=== PATIENT | male | born 1970 | race Caucasian/White ===

== ENCOUNTER 2017-11-25 05:57 | Inpatient (IN) | payer MEDICARE, OTHER ==
[~2017-11-25] VITALS: Ht 175.3 cm; Wt 87.1 kg
[~2017-11-25 05:57] MED LIST: ALLO100T PO; ASPI-845 PO; ATOR80TA PO; BUTA1CAP PO; CARV-49 PO; CLOP75TA15 PO; HYDR-565 PO; INDSR75C PO; ISOS30TA6 PO; LOSA25TA21 PO; METO5TAB85 PO; MULT-66 PO; NITR0.4T51 SL
[2017-11-25] MEDS ORDERED: pantoprazole 40 MG vial IV ONE (06:45)
[2017-11-25] MEDS ORDERED: morphine 4 MG/ML inj SYRINge IV ONE (06:45)
[2017-11-25] MEDS ORDERED: nitroGLYCERIN 0.4mg/hour patch TD ONE (06:45)
[2017-11-25] MEDS ORDERED: normal saline 1000ML IV soln IVB ONE (06:45)
[2017-11-25 06:48] LABS: INR 1.1 INR
[2017-11-25 06:51] LABS: ALANINE AMINOTRANSFERASE 30 U/L (12-78); ALBUMIN 3.7 G/DL (3.4-5.0); ALBUMIN/GLOBULIN RATIO 1.2 (1.1-1.5); ALKALINE PHOSPHATASE 67 IU/L (46-116); ANION GAP 9 (8-16); ASPARTATE AMINO TRANSFERASE 14 U/L (10-37); BILIRUBIN,TOTAL 0.2 MG/DL (0.1-1.0); BLOOD UREA NITROGEN 10 MG/DL (7-18); BUN/CREATININE RATIO 8.9 (5.4-32.0); CALCIUM 8.5 MG/DL (8.5-10.1); CHLORIDE 106 MMOL/L (99-107); CREATININE 1.12 MG/DL (0.60-1.10); GLUCOSE 113 MG/DL (70-104); LIPASE 91 U/L (73-393); SODIUM 139 MMOL/L (135-145); TOTAL CARBON DIOXIDE 23.6 MMOL/L (24-32); TOTAL PROTEIN 6.8 G/DL (6.4-8.2); eGFR 70 ML/MIN
[2017-11-25 07:04] LABS: BASOPHILS # (AUTO) 0.1 X10'3 (0-0.2); BASOPHILS % (AUTO) 0.7 % (0-1); EOSINOPHILS # (AUTO) 0.2 X10'3 (0-0.9); EOSINOPHILS % (AUTO) 2.1 % (0-6); HEMATOCRIT 46.5 % (42.0-52.0); HEMOGLOBIN 15.8 g/dl (14.0-17.9); LYMPHOCYTES # (AUTO) 1.8 X10'3 (1.1-4.8); LYMPHOCYTES % (AUTO) 22.3 % (21-51); MEAN CORPUSCULAR HEMOGLOBIN 29.5 PG (27.0-31.0); MEAN CORPUSCULAR VOLUME 86.9 FL (78-98); MEAN PLATELET VOLUME 7.6 FL (7.4-10.4); MONOCYTES # (AUTO) 0.5 X10'3 (0-0.9); MONOCYTES % (AUTO) 5.9 % (2-12); NEUTROPHILS # (AUTO) 5.6 X10'3 (1.8-7.7); PLATELET COUNT 281 X10'3 (140-440); RED BLOOD COUNT 5.35 X10'6 (4.70-6.10); RED CELL DISTRIBUTION WIDTH 14.1 % (11.5-14.5); WHITE BLOOD COUNT 8.1 X10'3 (4.5-11.0)
[2017-11-25] MEDS ORDERED: ondansetron/PF 4mg/2ml inj IV ONE (07:05)
[2017-11-25] MEDS ORDERED: acetaminophen 325mg tablet PO ONE (07:05)
[2017-11-25] MEDS ORDERED: DIPH25CA83 PO (07:44)
[2017-11-25] MEDS ORDERED: CLOP75TA35 PO (07:45)
[2017-11-25] MEDS ORDERED: acetaminophen 325mg tablet PO PRN (08:40)
[2017-11-25] MEDS ORDERED: magnesium 4gm in 100ml NS 100 ML IV PRN (08:40)
[2017-11-25] MEDS ORDERED: morphine 4 MG/ML inj SYRINge IV PRN (08:40)
[2017-11-25] MEDS ORDERED: potassium Cl 40MEQ/NS 500ml 500 ML IV PRN ×2 (08:40)
[2017-11-25] MEDS ORDERED: magnesium 1gm/100ml D5W IVPB 50 ML IV PRN (08:40)
[2017-11-25] MEDS ORDERED: magnesium Cl slow-release 64mg tablet PO PRN (08:40)
[2017-11-25] MEDS ORDERED: mag hydrox/Alum hydrox/simeth 30ml oral suspension PO PRN (08:40)
[2017-11-25] MEDS ORDERED: potassium Cl 20 mEq SR tablet PO PRN ×2 (08:40)
[2017-11-25] MEDS: normal saline 1000ml 1,000 ML IV SCH ×3 (09:07→20:40)
[2017-11-25] MEDS: morphine 4 MG/ML inj SYRINge IV PRN ×2 (09:07→14:14)
[2017-11-25 09:10] LABS: CLARITY,URINE CLEAR (Clear); COLOR,URINE YELLOW (Yellow); GLUCOSE, URINE NEGATIVE (Neg); KETONES,URINE NEGATIVE (Neg); LEUKOCYTE ESTERASE ,URINE NEGATIVE (Neg); NITRITES, URINE NEGATIVE (Neg); OCCULT BLOOD,URINE NEGATIVE (Neg); PH,URINE 6.5 (4.8-8.0); PROTEIN,URINE NEGATIVE (Neg); UROBILINOGEN,URINE 0.2 E.U/dL (0.2-1.0)
[2017-11-25 09:14] LABS: UA COLLECTION TYPE VOIDED
[2017-11-25] MEDS ORDERED: iohexol 300mg/ml 100ml inj. ONE (09:48)
[2017-11-25 10:44] VITALS: BP 131/81
[2017-11-25] MEDS: ondansetron/PF 4mg/2ml inj IV PRN ×2 (14:13→14:14)
[2017-11-25 15:00] VITALS: BP 137/78
[2017-11-25] MEDS ORDERED: HYDROcodone/acetaminophen 10/325mg tab PO PRN (15:55)
[2017-11-25] MEDS ORDERED: nitroGLYCERIN 0.4mg SUBLingual tab SL PRN (15:55)
[2017-11-25] MEDS: pantoprazole 40 MG vial IV SCH (16:41)
[2017-11-25] MEDS: metroNIDAZOLE-Flagyl 500mg/NS 100 ML IV SCH ×2 (16:41→23:22)
[2017-11-25] MEDS: levoFLOXACIN-Levaquin 500mg/D5 100 ML IV SCH (17:50)
[2017-11-25 19:00] VITALS: BP 117/80
[2017-11-25] MEDS: lactobacillus rhamnosus 10,000 MMU CELLS/CAPSULE PO SCH (19:26)
[2017-11-25] MEDS: isosorbide mononitrate 30mg tab.SR.24H PO SCH (20:40)
[2017-11-25] MEDS: losartan 25mg tablet PO SCH (20:40)
[2017-11-25 23:00] VITALS: BP 102/60
[2017-11-26 03:00] VITALS: BP 102/60
[2017-11-26 05:23] LABS: ALBUMIN 3.3 G/DL (3.4-5.0); ANION GAP 8 (8-16); BLOOD UREA NITROGEN 8 MG/DL (7-18); BUN/CREATININE RATIO 7.5 (5.4-32.0); CALCIUM 8.2 MG/DL (8.5-10.1); CHLORIDE 105 MMOL/L (99-107); CREATININE 1.06 MG/DL (0.60-1.10); GLUCOSE 101 MG/DL (70-104); MAGNESIUM 1.6 MG/DL (1.5-2.4); POTASSIUM 3.9 MMOL/L (3.5-5.1); SODIUM 138 MMOL/L (135-145); TOTAL CARBON DIOXIDE 25.3 MMOL/L (24-32); eGFR 75 ML/MIN
[2017-11-26 05:24] LABS: BASOPHILS % (AUTO) 0.4 % (0-1); EOSINOPHILS # (AUTO) 0.2 X10'3 (0-0.9); EOSINOPHILS % (AUTO) 2.2 % (0-6); HEMATOCRIT 45.6 % (42.0-52.0); HEMOGLOBIN 15.5 g/dl (14.0-17.9); LYMPHOCYTES # (AUTO) 1.8 X10'3 (1.1-4.8); LYMPHOCYTES % (AUTO) 22.9 % (21-51); MEAN CORPUSCULAR HEMOGLOBIN 29.7 PG (27.0-31.0); MEAN CORPUSCULAR HGB CONC 34.1 % (33.0-36.5); MEAN CORPUSCULAR VOLUME 87.3 FL (78-98); MEAN PLATELET VOLUME 7.6 FL (7.4-10.4); MONOCYTES # (AUTO) 0.5 X10'3 (0-0.9); MONOCYTES % (AUTO) 6.3 % (2-12); NEUTROPHILS # (AUTO) 5.5 X10'3 (1.8-7.7); NEUTROPHILS % (AUTO) 68.2 % (42-75); PLATELET COUNT 245 X10'3 (140-440); RED BLOOD COUNT 5.23 X10'6 (4.70-6.10)
[2017-11-26 06:00] VITALS: BP 135/84
[2017-11-26] MEDS: metroNIDAZOLE-Flagyl 500mg/NS 100 ML IV SCH ×2 (07:26→16:18)
[2017-11-26] MEDS: pantoprazole 40 MG vial IV SCH (07:28)
[2017-11-26] MEDS: carvedilol 6.25mg tablet PO SCH (07:32)
[2017-11-26] MEDS: lactobacillus rhamnosus 10,000 MMU CELLS/CAPSULE PO SCH ×2 (07:34→20:14)
[2017-11-26] MEDS: atorvastatin 20mg tablet PO SCH (07:35)
[2017-11-26] MEDS: normal saline 1000ml 1,000 ML IV SCH ×2 (07:40→20:14)
[2017-11-26] MEDS ORDERED: aspirin 325mg tablet, delayed-release (Ecotrin) PO SCH (08:00)
[2017-11-26] MEDS: K and/or MAG REPLACEMENT MC SCH (08:00)
[2017-11-26] MEDS: levoFLOXACIN-Levaquin 500mg/D5 100 ML IV SCH (09:01)
[2017-11-26] MEDS: ondansetron/PF 4mg/2ml inj IV PRN (10:41)
[2017-11-26 13:21] VITALS: BP 137/84
[2017-11-26] MEDS ORDERED: MORPHINE 2MG in 2ml NS syringe IV ONE (14:20)
[2017-11-26] MEDS ORDERED: morphine 4 MG/ML inj SYRINge IV ONE (14:25)
[2017-11-26 15:00] VITALS: BP 133/74
[2017-11-26 19:00] VITALS: BP 134/84
[2017-11-26] MEDS: losartan 25mg tablet PO SCH (20:14)
[2017-11-26] MEDS: isosorbide mononitrate 30mg tab.SR.24H PO SCH (20:14)
[2017-11-26 23:00] VITALS: BP 116/67
[2017-11-27] MEDS: metroNIDAZOLE-Flagyl 500mg/NS 100 ML IV SCH ×3 (01:04→16:37)
[2017-11-27 03:00] VITALS: BP 121/65
[2017-11-27 05:04] LABS: BASOPHILS % (AUTO) 0.4 % (0-1); EOSINOPHILS # (AUTO) 0.1 X10'3 (0-0.9); EOSINOPHILS % (AUTO) 1.4 % (0-6); HEMATOCRIT 44.8 % (42.0-52.0); HEMOGLOBIN 15.2 g/dl (14.0-17.9); LYMPHOCYTES # (AUTO) 1.9 X10'3 (1.1-4.8); LYMPHOCYTES % (AUTO) 22.2 % (21-51); MEAN CORPUSCULAR HEMOGLOBIN 29.5 PG (27.0-31.0); MEAN CORPUSCULAR HGB CONC 33.8 % (33.0-36.5); MEAN CORPUSCULAR VOLUME 87.3 FL (78-98); MEAN PLATELET VOLUME 7.7 FL (7.4-10.4); MONOCYTES # (AUTO) 0.5 X10'3 (0-0.9); MONOCYTES % (AUTO) 6.4 % (2-12); NEUTROPHILS # (AUTO) 5.9 X10'3 (1.8-7.7); NEUTROPHILS % (AUTO) 69.6 % (42-75); PLATELET COUNT 245 X10'3 (140-440); RED BLOOD COUNT 5.14 X10'6 (4.70-6.10); RED CELL DISTRIBUTION WIDTH 13.9 % (11.5-14.5); WHITE BLOOD COUNT 8.4 X10'3 (4.5-11.0)
[2017-11-27 05:40] LABS: ALBUMIN 3.2 G/DL (3.4-5.0); ANION GAP 10 (8-16); BLOOD UREA NITROGEN 9 MG/DL (7-18); CALCIUM 8.2 MG/DL (8.5-10.1); CHLORIDE 105 MMOL/L (99-107); GLUCOSE 95 MG/DL (70-104); MAGNESIUM 1.7 MG/DL (1.5-2.4); SODIUM 140 MMOL/L (135-145); TOTAL CARBON DIOXIDE 25.4 MMOL/L (24-32); eGFR 80 ML/MIN
[2017-11-27 06:00] VITALS: BP 112/74
[2017-11-27] MEDS: normal saline 1000ml 1,000 ML IV SCH ×2 (06:50→16:37)
[2017-11-27] MEDS: levoFLOXACIN-Levaquin 500mg/D5 100 ML IV SCH (06:54)
[2017-11-27] MEDS: lactobacillus rhamnosus 10,000 MMU CELLS/CAPSULE PO SCH ×2 (06:55→19:44)
[2017-11-27] MEDS: atorvastatin 20mg tablet PO SCH (06:55)
[2017-11-27] MEDS: pantoprazole 40 MG vial IV SCH (06:55)
[2017-11-27] MEDS: carvedilol 6.25mg tablet PO SCH (06:56)
[2017-11-27] MEDS: K and/or MAG REPLACEMENT MC SCH (08:00)
[2017-11-27] MEDS: ondansetron/PF 4mg/2ml inj IV PRN ×2 (09:10→15:13)
[2017-11-27] MEDS: morphine 4 MG/ML inj SYRINge IV PRN ×2 (09:10→15:13)
[2017-11-27 10:54] LABS: OCCULT BLOOD STOOL NEGATIVE (Neg)
[2017-11-27 11:00] VITALS: BP 137/81
[2017-11-27 18:00] VITALS: BP 110/70
[2017-11-27] MEDS: isosorbide mononitrate 30mg tab.SR.24H PO SCH (20:03)
[2017-11-27] MEDS: losartan 25mg tablet PO SCH (20:03)
[2017-11-27 22:00] VITALS: BP 97/60
[2017-11-28] MEDS: metroNIDAZOLE-Flagyl 500mg/NS 100 ML IV SCH ×2 (01:54→07:41)
[2017-11-28 02:00] VITALS: BP 108/65
[2017-11-28 05:38] LABS: BASOPHILS % (AUTO) 0.3 % (0-1); EOSINOPHILS # (AUTO) 0.1 X10'3 (0-0.9); EOSINOPHILS % (AUTO) 1.4 % (0-6); HEMATOCRIT 45.7 % (42.0-52.0); HEMOGLOBIN 15.7 g/dl (14.0-17.9); LYMPHOCYTES # (AUTO) 1.7 X10'3 (1.1-4.8); LYMPHOCYTES % (AUTO) 21.3 % (21-51); MEAN CORPUSCULAR HEMOGLOBIN 29.9 PG (27.0-31.0); MEAN CORPUSCULAR HGB CONC 34.3 % (33.0-36.5); MEAN CORPUSCULAR VOLUME 87.1 FL (78-98); MEAN PLATELET VOLUME 7.4 FL (7.4-10.4); MONOCYTES # (AUTO) 0.6 X10'3 (0-0.9); MONOCYTES % (AUTO) 7.3 % (2-12); NEUTROPHILS # (AUTO) 5.7 X10'3 (1.8-7.7); NEUTROPHILS % (AUTO) 69.7 % (42-75); PLATELET COUNT 212 X10'3 (140-440); RED BLOOD COUNT 5.24 X10'6 (4.70-6.10); RED CELL DISTRIBUTION WIDTH 13.8 % (11.5-14.5); WHITE BLOOD COUNT 8.2 X10'3 (4.5-11.0)
[2017-11-28 05:59] LABS: ALBUMIN 3.3 G/DL (3.4-5.0); ANION GAP 9 (8-16); BLOOD UREA NITROGEN 10 MG/DL (7-18); BUN/CREATININE RATIO 9.3 (5.4-32.0); CALCIUM 8.2 MG/DL (8.5-10.1); CHLORIDE 106 MMOL/L (99-107); CREATININE 1.07 MG/DL (0.60-1.10); GLUCOSE 105 MG/DL (70-104); MAGNESIUM 1.9 MG/DL (1.5-2.4); SODIUM 139 MMOL/L (135-145); TOTAL CARBON DIOXIDE 23.7 MMOL/L (24-32); eGFR 74 ML/MIN
[2017-11-28 06:00] VITALS: BP 115/68
[2017-11-28] MEDS: pantoprazole 40 MG vial IV SCH (07:38)
[2017-11-28] MEDS: lactobacillus rhamnosus 10,000 MMU CELLS/CAPSULE PO SCH (07:40)
[2017-11-28] MEDS: atorvastatin 20mg tablet PO SCH (07:40)
[2017-11-28] MEDS: carvedilol 6.25mg tablet PO SCH (07:41)
[2017-11-28] MEDS: levoFLOXACIN-Levaquin 500mg/D5 100 ML IV SCH (07:41)
[2017-11-28] MEDS ORDERED: clopidogrel 75mg tablet PO SCH (08:00)
[2017-11-28] MEDS ORDERED: aspirin 81mg tab.chew PO SCH (08:30)
[2017-11-28] MEDS: normal saline 1000ml 1,000 ML IV SCH (08:35)
[2017-11-28] MEDS ORDERED: METR500T4 PO (09:52)
[2017-11-28] MEDS ORDERED: LEVO500T2 PO (09:52)
[2017-11-28] MEDS ORDERED: ASPI81TA52 PO (09:52)
[2017-11-28] MEDS ORDERED: FAMO-128 PO (09:58)
[2017-11-28 11:00] VITALS: BP 116/92
[2017-11-28] MEDS ORDERED: metroNIDAZOLE 500mg tablet PO SCH (17:30)
[2017-11-29] MEDS ORDERED: pantoprazole 40mg Tablet.DR PO SCH (07:30)
[2017-11-29] MEDS ORDERED: levoFLOXACIN 500mg tablet PO SCH (11:00)
[2017-12-02 11:58] LABS: OCCULT BLOOD STOOL POSITIVE (Neg)
== END 2017-11-28 12:15 | disposition home or self-care (01) | DRG 394 ==
LOC: ER 05:57 → ED HOLD 08:37 → PCU 3S 10:25
PROVIDERS: ADMIT Internal Medicine; ATTEND Internal Medicine
DX: K64.9 Unspecified hemorrhoids (principal); I25.110 Atherosclerotic heart disease of native coronary artery with unstable angina pectoris; K52.9 Noninfective gastroenteritis and colitis, unspecified; E78.5 Hyperlipidemia, unspecified; F12.10 Cannabis abuse, uncomplicated; E78.00 Pure hypercholesterolemia, unspecified; G47.30 Sleep apnea, unspecified; M10.9 Gout, unspecified; G43.909 Migraine, unspecified, not intractable, without status migrainosus; G89.29 Other chronic pain; I10 Essential (primary) hypertension; K21.9 Gastro-esophageal reflux disease without esophagitis; I25.2 Old myocardial infarction; Z90.49 Acquired absence of other specified parts of digestive tract; Z95.1 Presence of aortocoronary bypass graft; Z88.8 Allergy status to other drugs, medicaments and biological substances; Z79.899 Other long term (current) drug therapy; Z79.82 Long term (current) use of aspirin; Z79.02 Long term (current) use of antithrombotics/antiplatelets; Z87.891 Personal history of nicotine dependence; Z86.711 Personal history of pulmonary embolism; Z71.51 Drug abuse counseling and surveillance of drug abuser
CPT/HCPCS: 36415; 71045; 74177; 80048; 80053; 81003; 82272; 83690; 83735; 84484; 85025; 85610; 86885; 86900; 86901; 87045; 87046; 89055; 93005; 96374; 96375; 99285; C9113; J1956; J2270; J2274; J2405; J3490; J7030; Q9967

== ENCOUNTER → 2018-03-28 | Outpatient (CLI) | payer MEDICARE ==
[~2018-03-28] MED LIST changes: -ALLO100T PO; -ASPI-845 PO; -CLOP75TA15 PO; +CLOP75TA35 PO; +DIPH25CA83 PO; +FAMO-128 PO; +HYDR-4353 PO; -HYDR-565 PO; -INDSR75C PO; +LOSA25TA12 PO; -LOSA25TA21 PO
== END | disposition home or self-care (01) ==
LOC: RAD 08:24
PROVIDERS: ATTEND Surgery
DX: R10.30 Lower abdominal pain, unspecified (principal); I11.0 Hypertensive heart disease with heart failure; I50.9 Heart failure, unspecified; J44.9 Chronic obstructive pulmonary disease, unspecified; I25.2 Old myocardial infarction; Z87.891 Personal history of nicotine dependence
CPT/HCPCS: 76870

== ENCOUNTER 2020-05-02 11:15 | Inpatient (IN) | payer MEDICARE ==
[~2020-05-02] VITALS: Ht 175.3 cm; Wt 82.3 kg
[~2020-05-02 11:15] MED LIST changes: -LOSA25TA12 PO; +LOSA25TA41 PO
[2020-05-02] MEDS ORDERED: morphine 4 MG/ML inj SYRINge IV PRN (11:45)
[2020-05-02] MEDS ORDERED: ondansetron/PF 4mg/2ml inj IV ONE (11:45)
[2020-05-02 12:09] LABS: BASOPHILS # (AUTO) 0.1 X10'3 (0-0.2); BASOPHILS % (AUTO) 0.8 % (0-1); EOSINOPHILS # (AUTO) 0.2 X10'3 (0-0.9); EOSINOPHILS % (AUTO) 2.4 % (0-6); HEMATOCRIT 46.7 % (42.0-52.0); HEMOGLOBIN 16.2 g/dl (14.0-17.9); LYMPHOCYTES # (AUTO) 2.1 X10'3 (1.1-4.8); LYMPHOCYTES % (AUTO) 28.9 % (21-51); MEAN CORPUSCULAR HEMOGLOBIN 30.3 PG (27.0-31.0); MEAN CORPUSCULAR HGB CONC 34.6 g/dL (33.0-36.5); MEAN CORPUSCULAR VOLUME 87.5 FL (78-98); MEAN PLATELET VOLUME 7.4 FL (7.4-10.4); MONOCYTES # (AUTO) 0.5 X10'3 (0-0.9); MONOCYTES % (AUTO) 7.6 % (2-12); NEUTROPHILS # (AUTO) 4.3 X10'3 (1.8-7.7); NEUTROPHILS % (AUTO) 60.3 % (42-75); PLATELET COUNT 268 X10'3 (140-440); RED BLOOD COUNT 5.34 X10'6 (4.70-6.10); RED CELL DISTRIBUTION WIDTH 13.6 % (11.5-14.5); WHITE BLOOD COUNT 7.2 X10'3 (4.5-11.0)
[2020-05-02] MEDS: nitroGLYCERIN 0.4mg SUBLingual tab SL PRN ×2 (12:12→12:41)
[2020-05-02 12:18] LABS: ALANINE AMINOTRANSFERASE 30 U/L (12-78); ALBUMIN 4.2 G/DL (3.4-5.0); ALBUMIN/GLOBULIN RATIO 1.3 (1.1-1.5); ALKALINE PHOSPHATASE 56 IU/L (46-116); ANION GAP 8 (8-16); ASPARTATE AMINO TRANSFERASE 19 U/L (10-37); BILIRUBIN,TOTAL 0.5 MG/DL (0.1-1.0); BLOOD UREA NITROGEN 10 MG/DL (7-18); BUN/CREATININE RATIO 8.8 (5.4-32.0); CALCIUM 9.3 MG/DL (8.5-10.1); CHLORIDE 105 MMOL/L (99-107); CREATININE 1.13 MG/DL (0.60-1.10); GLUCOSE 104 MG/DL (70-104); POTASSIUM 4.1 MMOL/L (3.5-5.1); SODIUM 140 MMOL/L (135-145); TOTAL CARBON DIOXIDE 27.1 MMOL/L (24-32); TOTAL PROTEIN 7.5 G/DL (6.4-8.2); eGFR 69 ML/MIN
[2020-05-02] MEDS ORDERED: enoxaparin 100mg/ml syringe SUBCUT ONE (12:30)
[2020-05-02] MEDS ORDERED: nitroGLYCERIN-Tridil 50MG/D5W 250 ML IV SCH (12:40)
[2020-05-02] MEDS ORDERED: ondansetron/PF 4mg/2ml inj IV PRN (12:55)
[2020-05-02] MEDS ORDERED: magnesium hydroxide 30ml (MOM) UD suspension PO PRN (12:55)
[2020-05-02] MEDS ORDERED: mag hydrox/Alum hydrox/simeth 30ml oral suspension PO PRN (12:55)
[2020-05-02] MEDS ORDERED: acetaminophen 325mg tablet PO PRN (12:55)
[2020-05-02] MEDS ORDERED: morphine 2 MG/ML inj. syringe IV PRN (12:55)
[2020-05-02] MEDS: normal saline 1000ml 1,000 ML IV SCH ×2 (13:03→20:44)
[2020-05-02] MEDS ORDERED: CLOP75TA35 PO (13:08)
[2020-05-02] MEDS ORDERED: ASPI-1264 PO (13:08)
--- NOTE | 2020-05-02 13:36 | NUR ---
NITRO TURNED UP TO 15 MCG. PAIN 04/21
--- NOTE | 2020-05-02 14:33 | NUR ---
Note undone in ED - 05/02/20 at 1434 by LVLASTELIC NITRO AT [facility]MC[facility]
--- NOTE | 2020-05-02 14:34 | NUR ---
NITRO TO 20 MCG
[2020-05-02] MEDS ORDERED: HYDROcodone/acetaminophen 10/325mg tab PO PRN (15:35)
[2020-05-02] MEDS ORDERED: diphenhydrAMINE 25mg capsule PO PRN (15:35)
[2020-05-02] MEDS ORDERED: nitroGLYCERIN 0.4mg SUBLingual tab SL PRN (15:35)
[2020-05-02] MEDS ORDERED: butalbital/acetaminophen/caffeine (Fioricet) tablet PO PRN (15:40)
--- NOTE | 2020-05-02 17:37 | NUR ---
called ED for report no answer
[2020-05-02 18:30] VITALS: BP 140/77
--- NOTE | 2020-05-02 18:45 | NUR ---
Patient in room PCU 3012. I have received report from Trey KELLEY and had the opportunity to ask questions and assume patient care. Tele has been placed, 2 RN skin check has been completed. Patient refused MRSA swab. Oriented to room and call light.
[2020-05-02 20:00] VITALS: BP 133/81
[2020-05-02] MEDS: carvedilol 6.25mg tablet PO SCH (20:43)
[2020-05-02] MEDS: enoxaparin 80mg/0.8ml syringe SUBCUT SCH (20:44)
[2020-05-02] MEDS: losartan 25mg tablet PO SCH (20:44)
[2020-05-02] MEDS: morphine 2 MG/ML inj. syringe IV PRN (20:45)
--- NOTE | 2020-05-02 21:31 | NUR ---
Refused MRSA swab Patient refused MRSA swab despite education.
[2020-05-02 22:00] VITALS: BP 133/81
--- NOTE | 2020-05-02 22:02 | NUR ---
Refused DART Pt refusing to be darted due to headache and fatigue.
[2020-05-03] VITALS (10 sets, daily range): BP systolic 107–129; BP diastolic 60–75
--- NOTE | 2020-05-03 02:30 | NUR ---
Patient expressing he feels in pain. He is nauseated, and has been vomiting. Morphine given due to inability to swallow PO narcotics. Will continue to monitor for remainder of shift.
[2020-05-03] MEDS: normal saline 1000ml 1,000 ML IV SCH ×2 (05:34→18:55)
--- NOTE | 2020-05-03 06:16 | NUR ---
Problems reprioritized. Patient report given, questions answered & plan of care reviewed with Jose KELLEY.
--- NOTE | 2020-05-03 06:34 | NUR ---
Patient in room PCU 3012. I have received report from Chayo KELLEY and had the opportunity to ask questions and assume patient care.
[2020-05-03] MEDS: enoxaparin 80mg/0.8ml syringe SUBCUT SCH ×2 (08:00→20:00)
[2020-05-03] MEDS: clopidogrel 75mg tablet PO SCH (08:00)
[2020-05-03] MEDS: aspirin 325mg tablet PO SCH (08:00)
[2020-05-03 08:21] LABS: ALBUMIN 3.8 G/DL (3.4-5.0); ANION GAP 10 (8-16); BASOPHILS # (AUTO) 0.1 X10'3 (0-0.2); BASOPHILS % (AUTO) 0.7 % (0-1); BLOOD UREA NITROGEN 13 MG/DL (7-18); BUN/CREATININE RATIO 11.9 (5.4-32.0); CALCIUM 8.7 MG/DL (8.5-10.1); CHLORIDE 105 MMOL/L (99-107); CREATININE 1.09 MG/DL (0.60-1.10); EOSINOPHILS # (AUTO) 0.2 X10'3 (0-0.9); EOSINOPHILS % (AUTO) 2.9 % (0-6); GLUCOSE 95 MG/DL (70-104); HEMATOCRIT 47.4 % (42.0-52.0); LYMPHOCYTES # (AUTO) 1.9 X10'3 (1.1-4.8); LYMPHOCYTES % (AUTO) 26.3 % (21-51); MEAN CORPUSCULAR HEMOGLOBIN 29.9 PG (27.0-31.0); MEAN CORPUSCULAR HGB CONC 33.7 g/dL (33.0-36.5); MEAN CORPUSCULAR VOLUME 88.7 FL (78-98); MEAN PLATELET VOLUME 7.6 FL (7.4-10.4); MONOCYTES # (AUTO) 0.6 X10'3 (0-0.9); NEUTROPHILS # (AUTO) 4.4 X10'3 (1.8-7.7); NEUTROPHILS % (AUTO) 62.1 % (42-75); PLATELET COUNT 278 X10'3 (140-440); POTASSIUM 4.1 MMOL/L (3.5-5.1); RED BLOOD COUNT 5.34 X10'6 (4.70-6.10); RED CELL DISTRIBUTION WIDTH 13.7 % (11.5-14.5); SODIUM 139 MMOL/L (135-145); TOTAL CARBON DIOXIDE 24.1 MMOL/L (24-32); WHITE BLOOD COUNT 7.1 X10'3 (4.5-11.0); eGFR 72 ML/MIN
[2020-05-03] MEDS: atorvastatin 20mg tablet PO SCH (09:21)
[2020-05-03] MEDS: multivitamins, therapeutics tablet PO SCH (09:21)
[2020-05-03] MEDS: carvedilol 6.25mg tablet PO SCH ×2 (09:23→21:04)
--- NOTE | 2020-05-03 18:32 | NUR ---
Problems reprioritized. Patient report given, questions answered & plan of care reviewed with Karla KELLEY. Addendum: 05/03/20 at 1838 by Arianne Flores RN Report given to Jez KLELEY
--- NOTE | 2020-05-03 18:33 | NUR ---
Patient in room PCU 3012. I have received report from ALLIE Acuña and had the opportunity to ask questions and assume patient care. Safety measures in place, bed in low and locked position. Will continue to monitor throughout shift.
[2020-05-03] MEDS ORDERED: midazolam 2 mg/2 ml injection ONE (18:50)
[2020-05-03] MEDS ORDERED: heparin 1,000 UNITS/NS 500ml 500 ML ONE (18:50)
[2020-05-03] MEDS ORDERED: fentaNYL/PF 50MCG/1 ML 2ML syringe ONE (18:50)
[2020-05-03] MEDS ORDERED: iohexol 350MG/ML 100ml bottle IV ONE (18:50)
[2020-05-03] MEDS ORDERED: LIDOcaine 1% (10mg/ml)w/preservative injection 20ml MDV ONE (18:50)
[2020-05-03] MEDS ORDERED: ondansetron/PF 4mg/2ml inj ONE (19:11)
[2020-05-03] MEDS ORDERED: iohexol 350 MG/ML 50ML vial IV ONE ×2 (19:26→19:27)
--- NOTE | 2020-05-03 20:00 | NUR ---
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 Left approximately 1900. Laying flat, nitro was off. wetlands conservation laborer RN stated he was doing fine without it, so did not need to be on it unless I felt he needed it. No chest pain, no signs of distress. Heart rate and blood pressure within normal limits. Per charge, KIMBERLI nitro. Dressing to the right femoral artery dry, intact. No signs of bleeding. Safety measures in place, bed in low and locked position. Call light and personal items within reach. Will continue to monitor for remainder of shift.
[2020-05-03] MEDS: losartan 25mg tablet PO SCH (21:04)
[2020-05-03] MEDS ORDERED: proCHLORperazine 10 MG/2 ml inj IV PRN (23:50)
[2020-05-03] MEDS ORDERED: ondansetron/PF 4mg/2ml inj IV PRN (23:50)
[2020-05-03] MEDS ORDERED: OXAZEpam 15mg capsule PO PRN (23:50)
[2020-05-03] MEDS ORDERED: HYDROcodone/acetaminophen 5mg/325mg tablet PO PRN (23:50)
[2020-05-03] MEDS ORDERED: HYDROcodone/acetaminophen 10/325mg tab PO PRN (23:50)
[2020-05-04] VITALS: BP 131/66
--- NOTE | 2020-05-04 00:02 | NUR ---
Paged Dr. Coe. [facility] [id number]. Vomiting. Can I give Zofran one hour early? Jez [phone] Dr. Coe returned call within five minutes. Approved giving zofran an hour early.
--- NOTE | 2020-05-04 01:00 | NUR ---
Patient requested to get out of bed, informed he was still within the timeframe of needing to stay due to recent cardiac catheterization. He chose to sit up, and get out of bed to goto the bathroom. He was educated on the risk of bleeding, stated "i will sign a waiver". Patient was escorted back to bed once done in the restroom. Dressing to right groin was clean, dry, and intact. No signs of bleeding. Will continue to monitor.
[2020-05-04 02:00] VITALS: BP 124/66
[2020-05-04] MEDS: morphine 2 MG/ML inj. syringe IV PRN (02:31)
[2020-05-04 04:00] VITALS: BP 122/59
[2020-05-04] MEDS: normal saline 1000ml 1,000 ML IV SCH (04:55)
--- NOTE | 2020-05-04 06:23 | NUR ---
Problems reprioritized. Patient report given, questions answered & plan of care reviewed with ALLIE Acuña. VSS. Medications adminsitered as ordered. Safety measures in place, bed in low and locked position. Call light and personal items within reach. Will continue to monitor for remainder of shift.
--- NOTE | 2020-05-04 06:29 | NUR ---
Patient in room PCU 3012. I have received report from Jez KELLEY and had the opportunity to ask questions and assume patient care.
[2020-05-04 07:00] VITALS: BP 134/78
[2020-05-04 07:19] LABS: BASOPHILS % (AUTO) 0.6 % (0-1); EOSINOPHILS # (AUTO) 0.1 X10'3 (0-0.9); EOSINOPHILS % (AUTO) 1.8 % (0-6); HEMATOCRIT 47.1 % (42.0-52.0); HEMOGLOBIN 15.8 g/dl (14.0-17.9); LYMPHOCYTES # (AUTO) 1.6 X10'3 (1.1-4.8); LYMPHOCYTES % (AUTO) 22.4 % (21-51); MEAN CORPUSCULAR HEMOGLOBIN 29.8 PG (27.0-31.0); MEAN CORPUSCULAR HGB CONC 33.6 g/dL (33.0-36.5); MEAN CORPUSCULAR VOLUME 88.8 FL (78-98); MEAN PLATELET VOLUME 7.6 FL (7.4-10.4); MONOCYTES # (AUTO) 0.6 X10'3 (0-0.9); MONOCYTES % (AUTO) 8.8 % (2-12); NEUTROPHILS # (AUTO) 4.7 X10'3 (1.8-7.7); NEUTROPHILS % (AUTO) 66.4 % (42-75); PLATELET COUNT 227 X10'3 (140-440); RED BLOOD COUNT 5.31 X10'6 (4.70-6.10); RED CELL DISTRIBUTION WIDTH 13.6 % (11.5-14.5); WHITE BLOOD COUNT 7.1 X10'3 (4.5-11.0)
[2020-05-04 07:48] LABS: ALBUMIN 3.6 G/DL (3.4-5.0); ANION GAP 11 (8-16); BLOOD UREA NITROGEN 11 MG/DL (7-18); CALCIUM 8.4 MG/DL (8.5-10.1); CHLORIDE 105 MMOL/L (99-107); GLUCOSE 87 MG/DL (70-104); POTASSIUM 4.1 MMOL/L (3.5-5.1); SODIUM 140 MMOL/L (135-145); TOTAL CARBON DIOXIDE 24.2 MMOL/L (24-32); eGFR 71 ML/MIN
[2020-05-04] MEDS ORDERED: isosorbide mononitrate 30mg tab.SR.24H PO SCH (08:00)
[2020-05-04] MEDS: aspirin 325mg tablet PO SCH (09:20)
[2020-05-04] MEDS: carvedilol 6.25mg tablet PO SCH (09:22)
[2020-05-04] MEDS: multivitamins, therapeutics tablet PO SCH (09:22)
[2020-05-04] MEDS: atorvastatin 20mg tablet PO SCH (09:22)
[2020-05-04] MEDS: clopidogrel 75mg tablet PO SCH (09:23)
[2020-05-04 11:00] VITALS: BP 122/83
[2020-05-04] MEDS ORDERED: ISOS60TA4 PO (12:38)
--- NOTE | 2020-05-04 14:07 | NUR ---
Patient stable for discharge per MD order. All necessary discharge information and education reviewed with patient before signing necessary paperwork. New Rx called in to [facility] on [place]. IV discontinued with catheter in tact, conveyor monitor returned. Patient left in private vehicle
== END 2020-05-04 15:48 | disposition home or self-care (01) | DRG 281 ==
LOC: ER 11:15 → ED HOLD 12:54 → PCU 3S 18:50
PROVIDERS: ADMIT Family Medicine; ATTEND Family Medicine
PROC: 4A023N7 Measurement of Cardiac Sampling and Pressure, Left Heart, Percutaneous Approach (ICD-10-PCS; principal; 2020-05-03)
PROC: B2111ZZ Fluoroscopy of Multiple Coronary Arteries using Low Osmolar Contrast (ICD-10-PCS; 2020-05-03)
PROC: B2131ZZ Fluoroscopy of Multiple Coronary Artery Bypass Grafts using Low Osmolar Contrast (ICD-10-PCS; 2020-05-03)
PROC: B2151ZZ Fluoroscopy of Left Heart using Low Osmolar Contrast (ICD-10-PCS; 2020-05-03)
DX: I21.4 Non-ST elevation (NSTEMI) myocardial infarction (principal); I25.719 Atherosclerosis of autologous vein coronary artery bypass graft(s) with unspecified angina pectoris; R07.9 Chest pain, unspecified; E78.00 Pure hypercholesterolemia, unspecified; E78.5 Hyperlipidemia, unspecified; G89.4 Chronic pain syndrome; I10 Essential (primary) hypertension; F12.90 Cannabis use, unspecified, uncomplicated; G43.909 Migraine, unspecified, not intractable, without status migrainosus; G47.30 Sleep apnea, unspecified; K21.9 Gastro-esophageal reflux disease without esophagitis; M10.9 Gout, unspecified; I25.10 Atherosclerotic heart disease of native coronary artery without angina pectoris; I25.2 Old myocardial infarction; Z86.711 Personal history of pulmonary embolism; Z86.718 Personal history of other venous thrombosis and embolism; Z95.1 Presence of aortocoronary bypass graft; Z95.810 Presence of automatic (implantable) cardiac defibrillator; Z88.8 Allergy status to other drugs, medicaments and biological substances; Z90.49 Acquired absence of other specified parts of digestive tract
CPT/HCPCS: 36415; 71045; 76937; 80048; 80053; 83880; 84484; 85025; 93005; 93306; 93308; 93459; 96374; 96375; 99152; 99153; 99291; A4620; A6258; C1769; C1894; G0378; J1644; J1650; J2001; J2250; J2270; J2405; J3010; J3490; J7030; Q9967

== ENCOUNTER 2020-12-06 15:30 | Emergency (ER) | payer MEDICARE ==
[~2020-12-06] VITALS: Ht 175.3 cm; Wt 94.5 kg
[~2020-12-06 15:30] MED LIST changes: +ASPI-1264 PO; +CLOP75TA34 PO; -CLOP75TA35 PO; -FAMO-128 PO; -ISOS30TA6 PO
[2020-12-06 15:37] VITALS: BP 135/80
[2020-12-06 16:07] LABS: BASOPHILS % (AUTO) 0.4 % (0-1); EOSINOPHILS # (AUTO) 0.1 X10'3 (0-0.9); EOSINOPHILS % (AUTO) 1.4 % (0-6); HEMATOCRIT 46.6 % (42.0-52.0); HEMOGLOBIN 15.6 g/dl (14.0-17.9); LYMPHOCYTES # (AUTO) 2.1 X10'3 (1.1-4.8); LYMPHOCYTES % (AUTO) 25.8 % (21-51); MEAN CORPUSCULAR HEMOGLOBIN 29.5 PG (27.0-31.0); MEAN CORPUSCULAR HGB CONC 33.5 g/dL (33.0-36.5); MEAN PLATELET VOLUME 7.3 FL (7.4-10.4); MONOCYTES # (AUTO) 0.6 X10'3 (0-0.9); MONOCYTES % (AUTO) 7.1 % (2-12); NEUTROPHILS # (AUTO) 5.3 X10'3 (1.8-7.7); NEUTROPHILS % (AUTO) 65.3 % (42-75); PLATELET COUNT 278 X10'3 (140-440); RED BLOOD COUNT 5.29 X10'6 (4.70-6.10); RED CELL DISTRIBUTION WIDTH 14.3 % (11.5-14.5); WHITE BLOOD COUNT 8.2 X10'3 (4.5-11.0)
[2020-12-06 16:30] LABS: ALANINE AMINOTRANSFERASE 33 U/L (12-78); ALBUMIN 4.1 G/DL (3.4-5.0); ALBUMIN/GLOBULIN RATIO 1.4 (1.1-1.5); ALKALINE PHOSPHATASE 51 IU/L (46-116); ANION GAP 10 (8-16); ASPARTATE AMINO TRANSFERASE 17 U/L (10-37); BILIRUBIN,TOTAL 0.8 MG/DL (0.1-1.0); BLOOD UREA NITROGEN 9 MG/DL (7-18); CALCIUM 8.6 MG/DL (8.5-10.1); CHLORIDE 104 MMOL/L (99-107); CREATININE 1.12 MG/DL (0.60-1.10); GLUCOSE 97 MG/DL (70-104); POTASSIUM 3.8 MMOL/L (3.5-5.1); SODIUM 140 MMOL/L (135-145); TOTAL CARBON DIOXIDE 26.3 MMOL/L (24-32); TOTAL PROTEIN 7.1 G/DL (6.4-8.2); eGFR 69 ML/MIN
== END 2020-12-06 21:57 | disposition left against medical advice (07) ==
LOC: ER 15:30
DX: R07.89 Other chest pain (principal); Z53.21 Procedure and treatment not carried out due to patient leaving prior to being seen by health care provider
CPT/HCPCS: 36415; 71045; 80053; 83880; 84484; 85025; 93005